=== PATIENT | female | born 1985 | race Caucasian/White ===

== ENCOUNTER 2017-05-29 20:09 | Emergency (ER) | payer OTHER ==
[2017-05-29 20:23] VITALS: BP 130/81; TEMP 99.2; BMI 23.4
[2017-05-29] MEDS ORDERED: IBUPROFEN 400 MG TABLET (FP) PO ONE ×2 (20:54→20:56)
[2017-05-29 20:55] VITALS: PULSE 90
--- NOTE | 2017-05-29 21:03 | PDOC ---
History of Present Illness - General Chief Complaint: Pain Stated Complaint: Lt sided nipple pain Time Seen by Provider: 05/29/17 20:37 History Source: Patient - History of Present Illness Timing/Duration: 4-6 hours Severity: moderate Associated Symptoms: denies: fever/chills Past History - Past Medical History Allergies/Adverse Reactions: Allergies Allergy/AdvReac Type Severity Reaction Status Date / Time No Known Allergies Allergy Verified 05/29/17 20:23 Home Medications: Ambulatory Orders NK [No Known Home Medication] 05/29/17 - Suicide/Smoking/Psychosocial Hx Smoking History: Never smoked Have you smoked in the past 12 months: No Information on smoking cessation initiated: No Hx Alcohol Use: No Drug/Substance Use Hx: No Substance Use Type: None Hx Substance Use Treatment: No Review of Systems - Review of Systems Constitutional: No: Chills, Fever Respiratory: No: Shortness of Breath Cardiac (ROS): No: Chest Pain, Palpitations Integumentary: No: Erythema *Physical Exam - Vital Signs Last Vital Signs Temp Pulse Resp BP Pulse Ox 99.2 F 108 H 18 130/81 100 05/29/17 20:20 05/29/17 20:20 05/29/17 20:20 05/29/17 20:20 05/29/17 20:20 - Physical Exam General Appearance: Yes: Appropriately Dressed. No: Apparent Distress HEENT: positive: Normal Voice Neck: positive: Supple. negative: Lymphadenopathy (R), Lymphadenopathy (L) Respiratory/Chest: positive: Lungs Clear, Normal Breath Sounds, Other (Minimal tenderness to medial aspect of L breast w/ no mass palpated and no skin changes or nipple inversion, breast symmetric w/ no axilla lymphadenopathy). negative: Respiratory Distress Cardiovascular: positive: Regular Rate, S1, S2 Integumentary: positive: Dry, Warm Neurologic: positive: Fully Oriented, Alert, Normal Mood/Affect Medical Decision Making - Medical Decision Making 05/29/17 20:54 31-year-old female status post bilateral breast implants approximately 8 years ago w/ no complications, s/p implanon placement 5 months ago for control, here with pain to site of L areola that started 4 hrs ago, achy and intermittent. No swelling or nipple discharge. Denies any trauma. No h/o prior episode. Has not taken anything for pain See exam L breast pain 4hrs ago No trauma Not breast feeling S/p b/l breast augmentation >8 yrs ago w/ no complications Exam unremarkable Possibly fibrocystic disease vs pain 2/2 being on control (implanon can cause mastalgia) -dc w/ motrin and pmd f/u 05/29/17 21:03 05/29/17 21:07 *DC/Admit/Observation/Transfer Diagnosis at time of Disposition: Breast pain, left - Discharge Dispostion Disposition: HOME Condition at time of disposition: Good - Referrals Referrals: STAFF,NOT ON [Non Staff, Medical] - - Patient Instructions Printed Discharge Instructions: DI for Breast Pain (Mastalgia) Additional Instructions: The cause of your breat pain is unclear at this time as your exam was normal Take 800mg motrin every 6 hrs as needed and follow up with your PMD and RADIOCOMMUNICATIONS TECHNICIAN - Post Discharge Activity
--- NOTE | 2017-06-02 09:17 | EKG ---
Test Reason : Blood Pressure : / mmHG Vent. Rate : 110 BPM Atrial Rate : 110 BPM P-R Int : 118 ms QRS Dur : 080 ms QT Int : 316 ms P-R-T Axes : 034 032 038 degrees QTc Int : 427 ms SINUS TACHYCARDIA OTHERWISE NORMAL ECG NO PREVIOUS ECGS AVAILABLE Confirmed by SERGIO CORTÉS MD ([id number]) on 06/02/2017 9:16:38 AM Referred By: Confirmed By:SERGIO CORTÉS MD
== END 2017-05-29 21:11 | disposition home or self-care (01) ==
LOC: SUPCPDRO 20:09 → JERFT 20:09
DX: N64.4 Mastodynia (principal); Z96.89 Presence of other specified functional implants
CPT/HCPCS: 93005; 93010; 99281-25

== ENCOUNTER 2018-05-17 18:27 | Emergency (ER) | payer OTHER ==
--- NOTE | 2018-05-17 18:49 | PDOC ---
Rapid Medical Evaluation Chief Complaint: Cold Symptoms Time Seen by Provider: 05/17/18 18:47 Medical Evaluation: Allergies Allergy/AdvReac Type Severity Reaction Status Date / Time No Known Allergies Allergy Verified 05/29/17 20:23 I have performed a brief in-person evaluation of this patient. The patient presents with a chief complaint of: fever since yesterday. Lower middle abdominal pain Pertinent physical exam findings: none. Afebrile. Last tylenol was this morning I have ordered the following: UA/hcg/culture The patient will proceed to the ED for further evaluation. Discharge Disposition - Diagnosis Fever - Referrals - Patient Instructions - Post Discharge Activity
[2018-05-17 18:50] VITALS: BMI 202.1
--- NOTE | 2018-05-17 19:46 | PDOC ---
History of Present Illness - General Chief Complaint: Cold Symptoms Stated Complaint: COLD SYMPTOMS Time Seen by Provider: 05/17/18 18:47 History Source: Patient, Old Records Exam Limitations: No Limitations - History of Present Illness Initial Comments: 05/17/18 19:45 HISTORY OF PRESENT ILLNESS: This is a 32-year-old woman with history of pyelonephritis, breast augmentation who presents emergency Department with fevers and left pelvic pain for the past 2 days. Patient states this is a recurrence of her pelvic pain which she has had intermittently for the past 2 years after having an IUD removed. Patient reports having nonbloody green diarrhea over this past 2 days. Patient states she traveled to the [facility] from March 25 through April 10 and has had no issues since that travel. Patient states she's been taking [id number] Motrin with minimal relief of pelvic pain. Patient endorses having unprotected vaginal sex with one male partner over the past 2 years. Patient is not been using barrier contraceptive due to hormonal implant she received after having her IUD removed. Patient denies any headaches, chest pain, dizziness, shortness of breath, cough, nausea, vomiting, vaginal bleeding, vaginal discharge, dysuria, hematuria, rectal bleeding. No recent travel or sick contacts. PAST MEDICAL HISTORY: pyelonephritis SURGICAL HISTORY: breast augmentation 09/2016 ALLERGIES: No known drug allergies REVIEW OF SYSTEMS General/Constitutional: +fever or chills. Denies weakness, weight change. HEENT: Denies change in vision. Denies ear pain or discharge. Denies sore throat. Cardiovascular: Denies chest pain or shortness of breath. Respiratory: Denies cough, wheezing, or hemoptysis. Gastrointestinal: Denies nausea, vomiting, or constipation. Denies rectal bleeding. +non-bloody green diarrhea Genitourinary: Denies dysuria, frequency, or change in urination. Musculoskeletal: Denies joint or muscle swelling or pain. Denies neck or back pain. Skin and breasts: Denies rash or easy bruising. Neurologic: Denies headache, vertigo, loss of consciousness, or loss of sensation. Psychiatric: Denies depression or anxiety. Endocrine: Denies increased thirst. Denies abnormal weight change. Hematologic/Lymphatic: Denies anemia, easy bleeding, or history of blood clots. Allergic/Immunologic: Denies hives or skin allergy. Denies latex allergy. PHYSICAL EXAM General Appearance: Well-appearing, appropriately dressed. No apparent distress , no intoxication. HEENT: EOMI, PERRLA, normal ENT inspection, normal voice, TMs normal, pharynx normal. No conjunctival pallor. No photophobia, scleral icterus. Neck: Supple. Trachea midline. No tenderness, rigidity, carotid bruit, stridor , lymphadenopathy, or thyromegaly. Respiratory/Chest: Lungs CTAB. No shortness of breath, chest tenderness, respiratory distress, accessory muscle use. No crackles, rales, rhonchi, stridor , wheezing, dullness Cardiovascular: RRR. S1, S2. No JVD, murmur, bradycardia, tachycardia. Vascular Pulses: Dorsalis-Pedis (R): 2+, Dorsalis-Pedis (L): 2+ Gastrointestinal/Abdominal: Normal bowel sounds. Abdomen soft, non-distended. No rebound tenderness. No organomegaly, pulsatile mass, guarding, hernia, hepatomegaly, splenomegaly. Left pelvic tenderness. Lymphatic: No adenopathy, tenderness. Musculoskeletal/Extremities: Normal inspection. FROM of all extremities, normal capillary refill. Pelvis Stable. No CVA tenderness. No tenderness to extremities, pedal edema, swelling, erythema or deformity. Integumentary: Appropriate color, dry, warm. No cyanosis, erythema, jaundice or rash Neurologic: rolling mill operator II-XII intact. Fully oriented, alert. Appropriate mood/affect. Motor strength 5/5. No appreciable EOM palsy, facial droop or sensory deficit. Past History - Past Medical History Allergies/Adverse Reactions: Allergies Allergy/AdvReac Type Severity Reaction Status Date / Time No Known Allergies Allergy Verified 05/17/18 18:50 Home Medications: Ambulatory Orders metroNIDAZOLE 0.75% VAG. GEL [Metrogel 0.75% *Vaginal Gel* -] 1 applic VG HS 5 Days #1 tube 05/18/18 COPD: No - Suicide/Smoking/Psychosocial Hx Smoking History: Never smoked Have you smoked in the past 12 months: No Information on smoking cessation initiated: No Hx Alcohol Use: No Drug/Substance Use Hx: No Substance Use Type: None Hx Substance Use Treatment: No *Physical Exam - Vital Signs Last Vital Signs Temp Pulse Resp BP Pulse Ox 98.6 F 83 16 141/96 100 05/17/18 18:48 05/17/18 18:48 05/17/18 18:48 05/17/18 18:48 05/17/18 18:48 ED Treatment Course - LABORATORY CBC & Chemistry Diagram: 05/17/18 22:05 05/17/18 22:05 Medical Decision Making - Medical Decision Making 05/17/18 20:05 A/P: 32-year-old female with left pelvic pain and fever for 3 days. Normoactive bowel sounds Pelvic exam performed with WILFRED López present External exam is within normal limits No CMT Thin white vaginal discharge present Punctate hemorrhages noted on cervix Malodorous white discharge present to vaginal wall Left adnexal tenderness present no masses noted DDx: BV, colitis, tubo-ovarian abscess, ectopic , UTI Urine, labs, imaging pending test 05/18/18 00:50 CT as read by imaging battery charger conveyor line: No bowel obstruction, colitis, free fluid or free air. Normal appendix. No diverticulosis or acute diverticulitis. Unremarkable pancreas, kidneys and gallbladder. Normal uterus and ovaries bilateral breast implants I discussed the physical exam findings, ancillary test results and final diagnoses with the patient. I answered all of the patient's questions. The patient was satisfied with the care received and felt comfortable with the discharge plan and treatment plan. The patient will call their primary care physician within 24 hours to arrange follow-up and will return to the Emergency Department with any new, persistent or worsening symptoms. *DC/Admit/Observation/Transfer Diagnosis at time of Disposition: BV (bacterial vaginosis) - Discharge Dispostion Disposition: HOME Condition at time of disposition: Stable Decision to Admit order: No - Prescriptions Prescriptions: metroNIDAZOLE 0.75% VAG. GEL [Metrogel 0.75% *Vaginal Gel* -] 1 applic VG HS 5 Days #1 tube - Referrals Referrals: Kwame Mansfield MD [Primary Care Provider] - - Patient Instructions - Post Discharge Activity
[2018-05-17 20:24] LABS: URINE APPEARANCE CLEAR; URINE BILIRUBIN NEGATIVE (<2.0 mg/dL); URINE COLOR STRAW; URINE GLUCOSE (UA) NEGATIVE (NEGATIVE); URINE KETONE NEGATIVE (NEGATIVE); URINE NITRITE NEGATIVE (NEGATIVE); URINE PROTEIN NEGATIVE (NEGATIVE); URINE UROBILINOGEN NEGATIVE mg/dL (0.2-1.0)
[2018-05-17 20:26] LABS: HCG,QUALITATIVE URINE Negative
[2018-05-17 20:30] LABS: URINE LEUK ESTERASE 1+ (NEGATIVE)
[2018-05-17 20:53] LABS: EPI CELLS RARE /HPF (FEW); URINE MUCUS RARE
[2018-05-17] MEDS ORDERED: IBUPROFEN 600 MG TABLET (FP) PO ONE ×2 (21:45→22:03)
[2018-05-17 22:33] LABS: BASO % 0.3 % (0-2.0); EOS % 1.6 % (0-4.5); HEMATOCRIT 43.5 % (32.4-45.2); HEMOGLOBIN 14.5 GM/dL (10.7-15.3); LYMPH % 25.4 % (8-40); MCH 31.9 pg (25.7-33.7); MCHC 33.2 g/dl (32.0-36.0); MEAN CELL VOLUME 95.9 fl (80-96); MEAN PLT VOLUME 8.8 fl (7.5-11.1); MONO % 4.6 % (3.8-10.2); NEUT % 68.1 % (42.8-82.8); PLATELET COUNT 330 K/MM3 (134-434); RBC 4.54 M/mm3 (3.60-5.2); RDW 13.2 % (11.6-15.6); WHITE BLOOD COUNT 10.7 K/mm3 (4.0-10.0)
[2018-05-17 23:01] LABS: ALBUMIN 4.3 g/dl (3.4-5.0); ALK PHOS 60 U/L (45-117); ANION GAP 11 MMOL/L (8-16); BILIRUBIN,TOTAL 0.3 mg/dL (0.2-1); BLOOD UREA NITROGEN 7 mg/dL (7-18); CALCIUM 9.7 mg/dL (8.5-10.1); CHLORIDE 110 mmol/L (98-107); CO2 21 mmol/L (21-32); CREATININE 0.7 mg/dL (0.55-1.3); GLUCOSE,RANDOM 79 mg/dL (74-106); POTASSIUM 4.5 mmol/L (3.5-5.1); SGOT/AST 16 U/L (15-37); SGPT/ALT 35 U/L (13-61); SODIUM 143 mmol/L (136-145); TOT PROT 8.2 g/dl (6.4-8.2)
[2018-05-18 00:56] VITALS: BP 136/78; PULSE 89; TEMP 98.5
== END 2018-05-18 00:57 | disposition home or self-care (01) ==
LOC: JER 18:27
DX: N76.0 Acute vaginitis (principal); B96.89 Other specified bacterial agents as the cause of diseases classified elsewhere
CPT/HCPCS: 36415; 74177-TC; 80053; 81003; 81015; 84703; 85025; 87086; 87491; 87591; 99282-25

== ENCOUNTER 2018-10-26 18:30 | Emergency (ER) | payer OTHER ==
[2018-10-27 00:20] VITALS: TEMP 97.5
[2018-10-27 00:35] LABS: ALBUMIN 3.6 g/dl (3.4-5.0); ANION GAP 7 MMOL/L (8-16); BILIRUBIN,TOTAL 0.2 mg/dL (0.2-1); BLOOD UREA NITROGEN 8 mg/dL (7-18); CALCIUM 8.6 mg/dL (8.5-10.1); CHLORIDE 108 mmol/L (98-107); CO2 25 mmol/L (21-32); CREATININE 1.4 mg/dL (0.55-1.3); GLUCOSE,RANDOM 93 mg/dL (74-106); POTASSIUM 4.1 mmol/L (3.5-5.1); SODIUM 140 mmol/L (136-145); TOT PROT 7.1 g/dl (6.4-8.2)
[2018-10-27 00:36] LABS: ALK PHOS 49 U/L (45-117); SGOT/AST 15 U/L (15-37); SGPT/ALT 24 U/L (13-61)
[2018-10-27 01:17] LABS: URINE APPEARANCE CLEAR; URINE BILIRUBIN NEGATIVE (<2.0 mg/dL); URINE COLOR LTYELLOW; URINE GLUCOSE (UA) NEGATIVE (NEGATIVE); URINE KETONE TRACE (NEGATIVE); URINE LEUK ESTERASE NEGATIVE (NEGATIVE); URINE NITRITE NEGATIVE (NEGATIVE); URINE PROTEIN NEGATIVE (NEGATIVE); URINE UROBILINOGEN NEGATIVE mg/dL (0.2-1.0)
[2018-10-27 01:33] LABS: EPI CELLS RARE /HPF (FEW); URINE BACTERIA RARE /hpf (NONE SEEN)
[2018-10-27 03:13] VITALS: BP 133/91; PULSE 82; BMI 25.3
--- NOTE | 2018-10-27 06:26 | PDOC ---
History of Present Illness - General Chief Complaint: Vaginal Bleeding Stated Complaint: vaginal bleeding Time Seen by Provider: 10/27/18 00:10 Past History - Past Medical History Allergies/Adverse Reactions: Allergies Allergy/AdvReac Type Severity Reaction Status Date / Time No Known Allergies Allergy Verified 10/27/18 03:02 Home Medications: Ambulatory Orders 95/Iron Fum/Folic/Dha [ + Dha Combo Pack] 1 each PO DAILY #30 combo..pkg 10/27/18 COPD: No - Reproductive History Is Patient Now?: Yes Therapeutic (s) & number: No - Immunization History Immunization Up to Date: Yes - Suicide/Smoking/Psychosocial Hx Smoking History: Never smoked Have you smoked in the past 12 months: No Information on smoking cessation initiated: No Hx Alcohol Use: No Drug/Substance Use Hx: No Substance Use Type: None Hx Substance Use Treatment: No *Physical Exam - Vital Signs Last Vital Signs Temp Pulse Resp BP Pulse Ox 97.5 F L 71 18 108/71 99 10/27/18 00:18 10/27/18 00:18 10/27/18 00:18 10/27/18 00:18 10/27/18 00:18 Moderate Sedation - Procedure Monitoring Vital Signs: Procedure Monitoring Vital Signs Temperature 97.5 F L 10/27/18 00:18 Pulse Rate 71 10/27/18 00:18 Respiratory Rate 18 10/27/18 00:18 Blood Pressure 108/71 10/27/18 00:18 O2 Sat by Pulse Oximetry (%) 99 10/27/18 00:18 ED Treatment Course - LABORATORY CBC & Chemistry Diagram: 10/26/18 21:00 - ADDITIONAL ORDERS Additional order review: Laboratory Results 10/27/18 10/27/18 10/26/18 04:11 00:08 21:00 Sodium 140 Potassium 4.1 Chloride 108 H Carbon Dioxide 25 Anion Gap 7 L BUN 8 Creatinine 1.4 H Creat Clearance w eGFR 43.05 Random Glucose 93 Calcium 8.6 Total Bilirubin 0.2 AST 15 ALT 24 Alkaline Phosphatase 49 Total Protein 7.1 Albumin 3.6 Beta HCG, Quant 12485.1 Urine Color Ltyellow Urine Appearance Clear Urine pH 6.0 D Ur Specific [place] 1.018 Urine Protein Negative Urine Glucose (UA) Negative Urine Ketones Trace H Urine Blood 1+ H Urine Nitrite Negative Urine Bilirubin Negative Urine Urobilinogen Negative Ur Leukocyte Esterase Negative Urine WBC (Auto) 1 Urine RBC (Auto) 1 Ur Epithelial Cells Rare Urine Bacteria Rare Medical Decision Making - Medical Decision Making 10/27/18 06:22 Patient seen on downtime. See paper chart for details *DC/Admit/Observation/Transfer Diagnosis at time of Disposition: Vaginal bleeding affecting early - Discharge Dispostion Disposition: HOME Condition at time of disposition: Stable Decision to Admit order: No - Prescriptions Prescriptions: 95/Iron Fum/Folic/Dha [ + Dha Combo Pack] 1 each PO DAILY #30 combo..pkg - Referrals - Patient Instructions Additional Instructions: Beta HCG- [id number] Take vitamins as prescribed. Follow-up with her shoe cleaner for reevaluation and initial evaluation. Return to the emergency department for any worsening pain, vaginal bleeding or for any other concerns. Thank you very much for choosing us to provide your emergent health care needs - Post Discharge Activity Forms/Work/School Notes: Back to Work
[2018-10-28 09:48] LABS: BASO % 0.5 % (0-2.0); EOS % 1.4 % (0-4.5); HEMATOCRIT 37.5 % (32.4-45.2); HEMOGLOBIN 13.1 GM/dL (10.7-15.3); LYMPH % 22.7 % (8-40); MCH 33.6 pg (25.7-33.7); MCHC 34.9 g/dl (32.0-36.0); MEAN CELL VOLUME 96.3 fl (80-96); MEAN PLT VOLUME 8.4 fl (7.5-11.1); MONO % 5.7 % (3.8-10.2); NEUT % 69.7 % (42.8-82.8); PLATELET COUNT 297 K/MM3 (134-434); RDW 12.5 % (11.6-15.6); WHITE BLOOD COUNT 10.6 K/mm3 (4.0-10.0)
[2018-10-28 09:49] LABS: INR 1.01 (0.83-1.09); PROTHROMBIN TIME (PATIENT) 11.9 SEC (9.7-13.0)
== END 2018-10-27 06:30 | disposition home or self-care (01) ==
LOC: JER 18:30
DX: O26.891 Other specified pregnancy related conditions, first trimester (principal); O20.8 Other hemorrhage in early pregnancy; O34.81 Maternal care for other abnormalities of pelvic organs, first trimester; N83.11 Corpus luteum cyst of right ovary; Z3A.01 Less than 8 weeks gestation of pregnancy
CPT/HCPCS: 36415; 76817-TC; 80053; 81003; 81015; 84702; 85025; 85610; 86850; 86900; 86901; 87086; 99283-25

== ENCOUNTER 2019-04-30 08:30 | Emergency (ER) | payer OTHER ==
[2019-04-30 08:41] VITALS: BP 137/91; PULSE 69; TEMP 98; BMI 24.6
[2019-04-30] MEDS ORDERED: METOCLOPRAMIDE HCL INJECTION 10 MG/2 ML VIAL IVPB ONE (08:46)
[2019-04-30] MEDS ORDERED: KETOROLAC TROMETHAMINE 30 MG/1 ML VIAL IVPUSH ONE (08:46)
--- NOTE | 2019-04-30 08:51 | PDOC ---
History of Present Illness - General Chief Complaint: Headache Stated Complaint: HEADACHES Time Seen by Provider: 04/30/19 08:42 History Source: Patient - History of Present Illness Severity: Yes: severe Past History - Past Medical History Allergies/Adverse Reactions: Allergies Allergy/AdvReac Type Severity Reaction Status Date / Time No Known Allergies Allergy Verified 04/30/19 08:41 Home Medications: Ambulatory Orders NK [No Known Home Medication] 04/30/19 COPD: No - Reproductive History Therapeutic (s) & number: No - Immunization History Immunization Up to Date: Yes - Suicide/Smoking/Psychosocial Hx Smoking History: Never smoked Have you smoked in the past 12 months: No Hx Alcohol Use: No Drug/Substance Use Hx: No Substance Use Type: None Hx Substance Use Treatment: No Review of Systems - Review of Systems Constitutional: No: Chills, Fever HEENTM: No: Blurred Vision ABD/GI: No: Nausea, Vomiting Musculoskeletal: Yes: Neck Pain. No: Back Pain Neurological: Yes: Headache. No: Numbness, Tingling, Weakness, Dizziness *Physical Exam - Vital Signs Last Vital Signs Temp Pulse Resp BP Pulse Ox 98.0 F 69 16 137/91 100 04/30/19 08:39 04/30/19 08:39 04/30/19 08:39 04/30/19 08:39 04/30/19 08:39 - Physical Exam General Appearance: Yes: Appropriately Dressed, Mild Distress HEENT: positive: Normal Voice Neck: positive: Tender (over trapezius and lateral neck b/l, no midline ttp, FROMI), Supple Respiratory/Chest: negative: Respiratory Distress Integumentary: positive: Dry, Warm Neurologic: positive: Fully Oriented, Alert, Normal Mood/Affect, Motor Strength 5/5 Medical Decision Making - Medical Decision Making 04/30/19 08:45 33 yo F, no sig hx, here w/ ANDREW. For the past 3 days has had neck pain that radiates to head diffusely, feels like pressure, constant with a severity of 8 out of 10, not relieved with meds. No dizziness, visual changes, photophobia, nausea or vomiting. Has had headaches in the past but not this severe. No recent trauma See exam ANDREW Possible neck source as pt awoke w/ pain 3 days ago and mostly ttp over b/l trapezius and lateral aspect of neck on exam Neuro intact No trauma No red flags at this time -upreg -pain meds/reassess 04/30/19 10:11 Preg test positive here. Pt was not aware. States she has not missed a period. No abd pain, vag bleed, n/v at this time to warrant US/blood work in ER. ANDREW since resolved w/ meds here. Will dc w/ FEE CLERK f/u *DC/Admit/Observation/Transfer Diagnosis at time of Disposition: test positive Headache Qualifiers: Headache type: unspecified Headache chronicity pattern: acute headache Intractability: not intractable Qualified Code(s): R51 - Headache - Discharge Dispostion Disposition: HOME Condition at time of disposition: Improved - Referrals Referrals: ON STAFF,NOT [Primary Care Provider] - - Patient Instructions Additional Instructions: Take tylenol for headache as directed Your test was positive here. Please follow up with your FEE CLERK - Post Discharge Activity
[2019-04-30] MEDS ORDERED: METOCLOPRAMIDE HCL INJECTION 10 MG/2 ML VIAL ONE (09:07)
[2019-04-30] MEDS ORDERED: KETOROLAC TROMETHAMINE 30 MG/1 ML VIAL ONE (09:07)
[2019-04-30] MEDS ORDERED: ACETAMINOPHEN 325 MG TABLET (FP) PO ONE (10:12)
[2019-04-30] MEDS ORDERED: ACETAMINOPHEN 325 MG TABLET (FP) ONE (10:18)
== END 2019-04-30 10:30 | disposition home or self-care (01) ==
LOC: JER 08:30
PROC: 3E033GC Introduction of Other Therapeutic Substance into Peripheral Vein, Percutaneous Approach (ICD-10-PCS; principal; 2019-04-30)
DX: O99.89 Other specified diseases and conditions complicating pregnancy, childbirth and the puerperium (principal); R51 Headache; Z3A.00 Weeks of gestation of pregnancy not specified
CPT/HCPCS: 84703; 96374; 99282-25

== ENCOUNTER 2022-11-02 21:39 | Emergency (ER) | payer OTHER ==
[2022-11-02 21:59] VITALS: BP 124/90; PULSE 109; RESP 16; TEMP 98.1; BMI 26.7
== END 2022-11-03 00:05 | disposition left against medical advice (07) ==
LOC: JER 21:39 → JERFT 21:39 → JER 11-03 00:05
DX: R51.9 Headache, unspecified (principal); M54.2 Cervicalgia
CPT/HCPCS: 99281-25

== ENCOUNTER 2023-11-15 05:13 | Day surgery (SDC) | payer OTHER ==
[2023-11-10 13:34] VITALS: BMI 27.7
[2023-11-15] MEDS ORDERED: ONDANSETRON 4 MG/2 ML VIAL IVPUSH PRN (12:52)
[2023-11-15] MEDS ORDERED: oxyCODONE HCL 5 MG TABLET PO PRN (12:52)
[2023-11-15] MEDS ORDERED: LIDOCAINE HCL/PF 2% SDV 5ML VIAL ONE (12:59)
[2023-11-15] MEDS ORDERED: DEXAMETHASONE SOD PHOSPHATE 4 MG/1 ML VIAL ONE ×2 (12:59→13:04)
[2023-11-15] MEDS ORDERED: PROPOFOL 20 ML ONE (12:59)
[2023-11-15] MEDS ORDERED: ONDANSETRON 4 MG/2 ML VIAL ONE (12:59)
[2023-11-15] MEDS ORDERED: MIDAZOLAM HCL 2 MG/2 ML SINGLE DOSE VIAL ONE (12:59)
[2023-11-15] MEDS ORDERED: KETOROLAC TROMETHAMINE 30 MG/1 ML VIAL ONE (12:59)
[2023-11-15] MEDS ORDERED: FENTANYL CITRATE/PF 50 MCG/ML VIAL ONE ×2 (12:59→14:58)
[2023-11-15] MEDS ORDERED: ROCURONIUM BROMIDE 50 MG/5 ML SYRINGE ONE (12:59)
[2023-11-15] MEDS ORDERED: LACTATED RINGERS SOLUTION 1,000 ML IV SCH (13:00)
[2023-11-15] MEDS ORDERED: ceFAZolin SODIUM 1 GM VIAL ONE (13:04)
[2023-11-15] MEDS: ceFAZolin SODIUM 1 GM VIAL IVPB ONE (13:32)
[2023-11-15] MEDS: BUPIVACAINE HCL/EPINEPHRINE/PF 30 ML VIAL IJ ONE (13:53)
[2023-11-15] MEDS ORDERED: NEOSTIGMINE METHYLSULFATE 0.5 MG/1 ML - 10 ML MDV ONE (14:12)
[2023-11-15 16:48] VITALS: BP 147/96; PULSE 90; RESP 16; TEMP 97.7
== END 2023-11-15 16:45 | disposition home or self-care (01) ==
LOC: JASU-SURG 05:13
PROVIDERS: ATTEND Specialist
PROC: 0UB74ZZ Excision of Bilateral Fallopian Tubes, Percutaneous Endoscopic Approach (ICD-10-PCS; principal; 2023-11-15 12:30)
DX: Z30.2 Encounter for sterilization (principal)
CPT/HCPCS: 81025; 88305-TC; 94760